=== PATIENT | male | born 1965 | race Caucasian/White ===

== ENCOUNTER 2017-03-28 15:54 | Emergency (ER) | payer MEDICAID ==
[2017-03-28 16:05] VITALS: BP 152/86; BMI 25.8
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
[2017-03-28] MEDS ORDERED: TORADOL 60 MG VIAL IM ONE (17:08)
[2017-03-28] MEDS ORDERED: NORFLEX INJ IM ONE (17:09)
[2017-03-28] MEDS ORDERED: TORADOL 60 MG VIAL ONE (17:16)
[2017-03-28] MEDS ORDERED: NORFLEX INJ ONE (17:16)
--- NOTE | 2017-03-28 18:13 | RAD ---
HISTORY: Lumbar strain. Study: Five views of the lumbar spine. Comparison: None. Findings: 5 [id number] lumbar vertebra. Postsurgical changes at L4-L5 with posterior fusion hardware. The visualized hardware appears intact. No acute fracture or listhesis. Remaining vertebral body height s and disc spaces are maintained. Multilevel facet arthrosis and small anterior disc osteophyte comp lexes. The SI joints appear normal. The soft tissues are unremarkable. IMPRESSION: Chronic findings as above. Reported By:
== END 2017-03-28 18:31 | disposition home or self-care (01) ==
LOC: ER 16:15
DX: S39.012A Strain of muscle, fascia and tendon of lower back, initial encounter (principal); X50.0XXA Overexertion from strenuous movement or load, initial encounter; Y92.9 Unspecified place or not applicable
CPT/HCPCS: 72110; 96372; 99283; J1885; J2360